=== PATIENT | male | born 1960 | race Two or more races ===

== ENCOUNTER 2019-03-03 16:21 | Inpatient (IN) | payer OTHER ==
[~2019-03-03] VITALS: Ht 157.5 cm; Wt 68.3 kg
[2019-03-03] MEDS ORDERED: SODIUM CHLORIDE 0.9% 1,000 ML IV ONE ×2 (16:48)
[2019-03-03 17:31] LABS: Basophils # (auto) 0 uL; Basophils % (auto) 0.5 % (0.0-2.0); Eosinophils # (auto) 0.1 uL; Eosinophils % (auto) 1.2 % (0.0-7.0); Hematocrit 42.5 % (41.0-53.0); Hemoglobin 14.5 g/dL (13.5-17.5); Lymphocytes # (auto) 1.6 uL; Lymphocytes % (auto) 24.6 % (10.0-50.0); Mean Corpuscular Hemoglobin 32.4 pg (28.0-32.0); Mean Corpuscular Volume 95.3 fL (80.0-100.0); Monocytes # (auto) 0.4 uL; Monocytes % (auto) 6.7 % (0.0-12.0); Neutrophils # (auto) 4.3 uL; Platelet Count (auto) 176 10^3/uL (140-450); Red Blood Cells 4.46 10^6/uL (4.5-5.90); Red Cell Distribution Width 12.9 % (11.8-14.3); White Blood Cell 6.5 10^3/uL (4.4-10.8)
[2019-03-03 18:01] LABS: Alanine Aminotransferase 18 U/L (16-61); Albumin 4.1 g/dL (3.4-5.0); Alkaline Phosphatase 63 U/L (45-117); Anion Gap 7 (5-15); Aspartate Aminotransferase 11 U/L (15-37); BUN/Creatinine Ratio 20.5; Bilirubin, Total 0.6 mg/dL (0.2-1.0); Blood Urea Nitrogen 18 mg/dL (7-18); Carbon Dioxide 26 mmol/L (21-32); Chloride 106 mmol/L (98-107); GFR African American 114 mL/min; GFR Non-African American 95 mL/min; Glucose 166 mg/dL (74-106); Magnesium 2.4 mg/dL (1.6-2.6); Potassium 4.6 mmol/L (3.5-5.1); Sodium 139 mmol/L (136-145); Total Protein 7.6 g/dL (6.4-8.2)
[2019-03-03] MEDS ORDERED: ONDANSETRON HCL 4 MG/2 ML VIAL IV PRN (20:00)
[2019-03-03] MEDS ORDERED: NITROGLYCERIN 0.4 MG SL TAB SL PRN (20:00)
[2019-03-03] MEDS ORDERED: ACETAMINOPHEN 500 MG TAB PO PRN (20:00)
[2019-03-03] MEDS ORDERED: DEXTROSE (50%) 50ML SYRG IV PRN (20:00)
[2019-03-03] MEDS ORDERED: MORPHINE SULF INJ 2 MG/ML SYRINGE 1ML IV PRN ×2 (20:00)
[2019-03-03] MEDS ORDERED: HYDROcodone-ACET 5/325MG TAB PO PRN (20:00)
[2019-03-03 20:34] LABS: Cholesterol 108 mg/dL (< 200); HDL Cholesterol 35 mg/dL (40-59); LDL Cholesterol 65 mg/dL (< 100); Triglycerides 135 mg/dL (< 150)
--- NOTE | 2019-03-03 21:40 | NUR ---
Telemetry admit from ER NESS KEANE admitted to Telemetry unit after SBAR received. Patient oriented to Kevin matamoros RN, unit, room, bed, and unit policies regarding patient care and visiting hours. Patient now on continuous telemetry monitoring, tele box # 30 and telemetry reading on arrival to unit is NSR. Patient placed on bedside oxygen, weighed by bedscale and encouraged to call if they need something. All questions and concerns addressed, patient verbalized understanding.
[2019-03-03] MEDS: InsuLIN REG 1unit/0.01ml Soln (100units/ml) SC SCH (22:00)
[2019-03-03] MEDS: ACCU-CHEK COMFORT CURVE STRIP VI SCH (22:00)
[2019-03-03] MEDS ORDERED: METF-370 PO (23:36)
[2019-03-03] MEDS ORDERED: SIMV-8 PO (23:36)
[2019-03-03] MEDS ORDERED: CETI10CA PO (23:53)
[2019-03-04 04:52] VITALS: BP 116/70
[2019-03-04] MEDS: ACCU-CHEK COMFORT CURVE STRIP VI SCH ×4 (06:53→22:24)
[2019-03-04] MEDS: InsuLIN REG 1unit/0.01ml Soln (100units/ml) SC SCH ×4 (06:54→22:23)
[2019-03-04 07:41] LABS: Urine WBC None Seen /hpf (0 - 3)
[2019-03-04 07:51] LABS: Urine Bacteria NONE SEEN /hpf (None Seen); Urine Blood Negative /uL (Negative); Urine Specific Gravity 1.013 (1.001-1.035)
[2019-03-04 08:10] LABS: Alcohol, Urine < 3.0 mg/dL (0-5); Amphetamine Screen, Urine NEGATIVE (NEGATIVE); Barbiturate Scree,Urine NEGATIVE (NEGATIVE); Benzodiazephine Screen, Urine NEGATIVE (NEGATIVE); Cannabinoid Screen, Urine NEGATIVE (NEGATIVE); Cocaine Screen, Urine NEGATIVE (NEGATIVE); Opiate Scree,Urine NEGATIVE (NEGATIVE); Phencyclidine Screen, Urine NEGATIVE (NEGATIVE)
[2019-03-04 09:00] VITALS: BP 126/76
[2019-03-04] MEDS: FAMOTIDINE 20 MG TAB PO SCH (10:00)
[2019-03-04 13:00] VITALS: BP 122/69
[2019-03-04 13:45] VITALS: BP_SYST 129; BP_SYST 132; BP_SYST 138; BP_DIAS 70; BP_DIAS 73; BP_DIAS 74
[2019-03-04 17:06] VITALS: BP 117/74
--- NOTE | 2019-03-04 19:30 | NUR ---
received pt from day rn poc reviewed
--- NOTE | 2019-03-04 20:54 | NUR ---
resting comfortable, able to verbalize needs in nigerian, dr herrera at bedside with interpretor
[2019-03-04 22:00] VITALS: BP 129/70
[2019-03-05 05:00] VITALS: BP 115/80
[2019-03-05] MEDS: ACCU-CHEK COMFORT CURVE STRIP VI SCH ×4 (06:16→21:52)
[2019-03-05] MEDS: InsuLIN REG 1unit/0.01ml Soln (100units/ml) SC SCH ×4 (06:16→21:54)
--- NOTE | 2019-03-05 06:18 | NUR ---
no change or c/o discomfort call light within reach
--- NOTE | 2019-03-05 06:58 | NUR ---
report given to am nurse poc reviewed
[2019-03-05 09:00] VITALS: BP 106/74
[2019-03-05] MEDS ORDERED: LISI-275 PO (10:02)
[2019-03-05] MEDS ORDERED: ASP81EC PO (10:02)
[2019-03-05] MEDS: LISINOPRIL 5 MG TAB PO SCH (10:36)
[2019-03-05] MEDS: FAMOTIDINE 20 MG TAB PO SCH (10:36)
[2019-03-05 13:00] VITALS: BP 120/73
--- NOTE | 2019-03-05 15:32 | NUR ---
1530 03/05/19 I spoke with [employer] Mariela who provided me with inpatient authorization number [id number]. She also provided me with phone number for nurse to call report to when patient is transferred [phone] provided this information to nurse Mona.
[2019-03-05 15:44] VITALS: BP 120/73
--- NOTE | 2019-03-05 16:11 | NUR ---
PT HAS DISCHARGE ORDERS PER DR RIVERA. PER DR CORBETT, PT TO HAVE EEG PRIOR TO DISCHARGE. ADVISED GUARDS THAT PT WILL MOST LIKELY BE STAYING IN HOSPITAL TONIGHT AND POSSIBLE DISCHARGE TOMORROW.
[2019-03-05 17:00] VITALS: BP 121/74
--- NOTE | 2019-03-05 19:28 | NUR ---
Received patient from day RN, POC reviewed.
[2019-03-05] MEDS ORDERED: ATORVASTATIN 20 MG TAB PO SCH (22:00)
[2019-03-05 23:00] VITALS: BP 118/68
--- NOTE | 2019-03-06 02:02 | NUR ---
Patient resting with eyes closed. Call light within reach.
--- NOTE | 2019-03-06 04:05 | NUR ---
Patient resting with eyes closed. Call light within reach.
[2019-03-06 05:53] VITALS: BP 118/68
[2019-03-06] MEDS: ACCU-CHEK COMFORT CURVE STRIP VI SCH ×3 (06:43→17:00)
[2019-03-06] MEDS: InsuLIN REG 1unit/0.01ml Soln (100units/ml) SC SCH ×3 (06:45→17:00)
--- NOTE | 2019-03-06 06:47 | NUR ---
Discharge MRSA swab sent.
--- NOTE | 2019-03-06 06:49 | NUR ---
Report given to OMI RDZ. POC reviewed.
[2019-03-06 09:00] VITALS: BP 125/72
[2019-03-06] MEDS: LISINOPRIL 5 MG TAB PO SCH (09:43)
[2019-03-06] MEDS: FAMOTIDINE 20 MG TAB PO SCH (09:44)
[2019-03-06] MEDS ORDERED: metFORMIN HYDROCHLORIDE 500 MG TAB PO ONE (12:00)
[2019-03-06 13:00] VITALS: BP 122/72
--- NOTE | 2019-03-06 15:28 | NUR ---
ELECTROENCEPHALOGRAM- EEG completed on 03/06/2019.
[2019-03-06 17:00] VITALS: BP 119/70
--- NOTE | 2019-03-06 18:37 | NUR ---
DISCHARGE INSTRUCTIONS GIVEN TO GUARDS AT BEDSIDE. IV REMOVED. PRESENTLY WAITING FOR TRANSPORT FOR DISCHARGE.
--- NOTE | 2019-03-06 19:30 | NUR ---
Tele box removed sent to ICU via bullet. Patient awaiting for [facility] transportation. 2 guards at bedside.
--- NOTE | 2019-03-06 19:45 | NUR ---
Patient's transportation arrived, assisted by 2 guards. Pt in stable condition at time of discharge.
== END 2019-03-06 19:45 | DRG 312 ==
LOC: EDBD 16:21 → ER 16:35 → EEVIPCON 16:35 → TELE 16:36 → TELE-CENTR 21:44
PROVIDERS: ADMIT Nurse Practitioner Acute Care; ATTEND Internal Medicine
DX: R55 Syncope and collapse (principal); E86.0 Dehydration; I10 Essential (primary) hypertension; E78.5 Hyperlipidemia, unspecified; E11.42 Type 2 diabetes mellitus with diabetic polyneuropathy; E78.00 Pure hypercholesterolemia, unspecified; Z79.84 Long term (current) use of oral hypoglycemic drugs; Z79.899 Other long term (current) drug therapy
CPT/HCPCS: 36415; 70450; 70551; 71045; 80053; 80061; 80307; 81001; 82962; 83036; 83735; 84484; 85025; 87081; 93005; 93306; 93886; 95819; 96360; 96361; G0378; J1815